=== PATIENT | male | born 1985 | race Caucasian/White ===

== ENCOUNTER 2019-09-12 15:24 | Emergency (ER) | payer SELFPAY ==
[~2019-09-12] VITALS: Ht 177.8 cm; Wt 139.3 kg
[2019-09-12 15:28] VITALS: Ht 177.8 cm; Wt 139.3 kg
[2019-09-12 18:17] VITALS: BP 140/74
== END 2019-09-12 17:30 | disposition home or self-care (01) ==
LOC: ED 15:24
DX: S29.011A Strain of muscle and tendon of front wall of thorax, initial encounter (principal); I10 Essential (primary) hypertension; X50.1XXA Overexertion from prolonged static or awkward postures, initial encounter; Y93.89 Activity, other specified; Y92.89 Other specified places as the place of occurrence of the external cause; Y99.8 Other external cause status
CPT/HCPCS: Q0092